=== PATIENT | female | born 1940 ===

== ENCOUNTER 2019-09-22 11:16 | Outpatient (CLI) | payer MEDICARE, MEDICAID ==
--- NOTE | 2019-09-22 11:33 | RAD ---
Chest 2 views HISTORY: Dyspnea. FINDINGS: No comparison. Cardiac silhouette is enlarged. Pulmonary vasculature upper limits of normal . Mediastinum is midline with aortic calcification. Lungs are hyperinflated with flattening of each hemidiaphragm. Blunting of the posterior costophrenic angles. No lobar consolidation or pneumothorax. Impression: Cardiomegaly with borderline pulmonary vascular congestion. Pulmonary hyperinflation. Probable small bilateral pleural effusions. Atherosclerosis.
== END 2019-09-22 11:17 | disposition home or self-care (01) ==
LOC: RAD 11:16
PROVIDERS: ATTEND Internal Medicine Critical Care Medicine
DX: R06.00 Dyspnea, unspecified (principal); I51.7 Cardiomegaly; R91.8 Other nonspecific abnormal finding of lung field; I70.0 Atherosclerosis of aorta; R09.89 Other specified symptoms and signs involving the circulatory and respiratory systems
CPT/HCPCS: 71046